=== PATIENT | female | born 1945 | race Caucasian/White ===

== ENCOUNTER 2017-10-16 11:41 | Emergency (ER) | payer MEDICARE, OTHER ==
[~2017-10-16] VITALS: Ht 157.5 cm; Wt 49.9 kg
[2017-10-16] MEDS ORDERED: SERT25TA PO (11:54)
[2017-10-16] MEDS ORDERED: ATOR10TA PO (11:54)
[2017-10-16] MEDS ORDERED: THYROID MED (11:58)
[2017-10-16] MEDS ORDERED: IV NORMAL SALINE 1000 ML BAG IV ONE ×2 (12:00→13:30)
[2017-10-16] MEDS ORDERED: ONDANSETRON 4 MG/2 ML VIAL IV ONE (12:00)
[2017-10-16] MEDS ORDERED: ONDANSETRON 4 MG/2 ML VIAL ONE (12:08)
[2017-10-16 12:29] LABS: BASOPHILS % (AUTO) 0.3 % (0.0-2.0); EOSINOPHILS % (AUTO) 0.1 % (0.0-7.0); HEMATOCRIT 36.2 % (31.2-41.9); HEMOGLOBIN 12.1 g/dL (10.9-14.3); LYMPHOCYTES # (AUTO) 0.8 K/uL (20.0-40.0); LYMPHOCYTES % (AUTO) 7.8 % (20.5-51.5); MEAN CORPUSCULAR HEMOGLOBIN 29.3 uug (24.7-32.8); MEAN CORPUSCULAR HGB CONC 34 g/dL (32.3-35.6); MEAN CORPUSCULAR VOLUME 87.6 fL (75.5-95.3); MONOCYTES # (AUTO) 0.3 K/uL (2.0-10.0); NEUTROPHILS # (AUTO) 8.7 K/uL (1.8-8.9); NEUTROPHILS % (AUTO) 88.8 % (38.5-71.5); PLATELET COUNT (AUTO) 191 K/uL (179-408); RED BLOOD CELL COUNT(AUTO) 4.13 MIL/uL (3.63-4.92); WHITE BLOOD COUNT (AUTO) 9.8 K/uL (3.8-11.8)
[2017-10-16 12:44] LABS: CARBON DIOXIDE 24 mmol/L (21-32); CHLORIDE 103 mmol/L (98-107); CREATININE 0.9 mg/dL (0.6-1.3); GLUCOSE 141 mg/dL (74-106); POTASSIUM 3.3 mmol/L (3.5-5.1); UREA NITROGEN, BLOOD 18 mg/dL (7-18)
[2017-10-16 12:49] LABS: ALANINE AMINOTRANSFERASE 24 U/L (14-59); ALKALINE PHOSPHATASE 68 U/L (50-136); ASPARTATE AMINOTRANSFERASE 19 U/L (15-37); BILIRUBIN,DIRECT 0.1 mg/dL (0.0-0.2); BILIRUBIN,TOTAL 0.4 mg/dL (0.2-1.0); LIPASE 63 U/L (73-393); TOTAL PROTEIN, SERUM 7.6 g/dL (6.4-8.2)
--- NOTE | 2017-10-16 14:48 | NUR ---
pt ambualted to bathroom with steady gait.
--- NOTE | 2017-10-16 15:00 | NUR ---
Patient discharged to home in stable conditon. Written and verbal after care instructions given. Patient verbalizes understanding of instructions.pt says feels better, pt walks in steady gait, pt accompanied by son.
[2017-10-16 15:01] VITALS: BP 121/88
== END 2017-10-16 15:02 | disposition home or self-care (01) ==
LOC: ER 11:45
DX: R10.9 Unspecified abdominal pain (principal); E78.5 Hyperlipidemia, unspecified; I10 Essential (primary) hypertension; K21.9 Gastro-esophageal reflux disease without esophagitis; E03.9 Hypothyroidism, unspecified; Z79.899 Other long term (current) drug therapy
CPT/HCPCS: 36415; 70030-TC; 71045; 83605; 83690; 85025; 85730; 87040; 93005; A4663; J2405; J7030

== ENCOUNTER 2021-02-21 17:01 | Emergency (ER) | payer MEDICARE, OTHER ==
[~2021-02-21] VITALS: Ht 157.5 cm; Wt 49.4 kg
[~2021-02-21 17:01] MED LIST: ATOR10TA PO; SERT25TA PO; THYROID MED
[2021-02-21] MEDS ORDERED: CALC500T52 PO (17:56)
[2021-02-21] MEDS ORDERED: OMEP20CA15 PO (17:56)
[2021-02-21] MEDS ORDERED: LOSA50TA39 PO (17:56)
[2021-02-21] MEDS ORDERED: ATOR20TA PO (17:56)
[2021-02-21] MEDS ORDERED: SOLI10TA2 PO (17:56)
[2021-02-21] MEDS ORDERED: ALEN70TA80 PO (17:56)
[2021-02-21] MEDS ORDERED: MV-M1TAB18 PO (17:56)
[2021-02-21] MEDS ORDERED: DIPH-1062 PO (17:56)
[2021-02-21] MEDS ORDERED: SERT100T PO (17:56)
[2021-02-21] MEDS ORDERED: ASPI81TA31 PO (17:56)
[2021-02-21] MEDS ORDERED: LEVO75TA7 PO (17:56)
[2021-02-21] MEDS ORDERED: OLOPATADINE EACHEYE (17:56)
[2021-02-21 18:03] LABS: HEMATOCRIT 31.1 % (31.2-41.9); MEAN CORPUSCULAR HEMOGLOBIN 30.1 uug (24.7-32.8); MEAN CORPUSCULAR VOLUME 90.6 fL (75.5-95.3); PLATELET COUNT (AUTO) 137 K/uL (179-408)
[2021-02-21 18:09] LABS: CREATININE 0.8 mg/dL (0.6-1.3); POTASSIUM 3.5 mmol/L (3.5-5.1)
[2021-02-21] MEDS ORDERED: ONDANSETRON ODT 4 MG TAB.RAPDIS SL ONE (19:30)
[2021-02-21] MEDS ORDERED: ONDANSETRON ODT 4 MG TAB.RAPDIS ONE (19:36)
[2021-02-21] MEDS ORDERED: IV NORMAL SALINE 1000 ML BAG IV ONE (19:45)
[2021-02-21] MEDS ORDERED: MECLIZINE HCL 25 MG TABLET PO ONE (19:45)
[2021-02-21] MEDS ORDERED: ONDANSETRON 4 MG/2 ML VIAL IV ONE (19:45)
[2021-02-21] MEDS ORDERED: ONDANSETRON 4 MG/2 ML VIAL ONE (19:48)
[2021-02-21 20:10] LABS: *BILIRUBIN,URIN NEGATIVE (NEGATIVE); *BLOOD, URINE TRACE (NEGATIVE); *COLOR,URINE YELLOW (YELLOW); *KETONES,URINE 1+ (NEGATIVE); *UROBILINOGEN,URINE 0.2 E.U./dl (NORMAL); LEUKOCYTE ESTERASE ,URINE NEGATIVE (NEGATIVE); NITRITE, URINE NEGATIVE (NEGATIVE); UGLUCOSE NEGATIVE (NEGATIVE)
[2021-02-21] MEDS ORDERED: MECLIZINE HCL 25 MG TABLET ONE (20:19)
[2021-02-21 20:21] LABS: *CLARITY,URINE SLIGHTLY HAZY (CLEAR); BACTERIA,URINE FEW /HPF (NONE SEEN); MUCUS,URINE FEW /LPF (0-FEW); SQUAMOUS EPITHELIAL CELL,UR FEW /HPF (NONE SEEN)
[2021-02-21] MEDS ORDERED: IOHEXOL 300MG/ML 100 ML INFUS..BTL ONE (20:30)
[2021-02-21] MEDS ORDERED: SWABABLE VALVE TRANSFER SET EA MC ONE (20:30)
[2021-02-21] MEDS ORDERED: IV NORMAL SALINE 250 ML IV ONE (20:30)
--- NOTE | 2021-02-21 20:45 | NUR ---
Pt taken down for CT, stable condition.
--- NOTE | 2021-02-21 21:05 | NUR ---
Pt returned from CT, stable condition.
[2021-02-21] MEDS ORDERED: MECL-159 PO (22:31)
[2021-02-21] MEDS ORDERED: ONDA8TAB13 PO (22:31)
--- NOTE | 2021-02-21 22:40 | NUR ---
Patient discharged to home in stable condition. A/O x4, no SOB or labored breathing. Denies any pain/discomfort. Denies anyn/v/d or dizziness. Written and verbal after care instructions given. Patient verbalizes understanding of instructions. Stressed follow up or return to ER for worsening s/s. Steady gait. Accompanied by family.
[2021-02-21 22:55] VITALS: BP 132/70
== END 2021-02-21 22:40 | disposition home or self-care (01) ==
LOC: ER 17:02
DX: R11.2 Nausea with vomiting, unspecified (principal); R51.9 Headache, unspecified; Z20.822 Contact with and (suspected) exposure to COVID-19; R42 Dizziness and giddiness; E78.5 Hyperlipidemia, unspecified; K21.9 Gastro-esophageal reflux disease without esophagitis; I10 Essential (primary) hypertension; E03.9 Hypothyroidism, unspecified; M19.90 Unspecified osteoarthritis, unspecified site; Z79.82 Long term (current) use of aspirin; Z79.899 Other long term (current) drug therapy; F32.9 Major depressive disorder, single episode, unspecified
CPT/HCPCS: 36415; 70450; 71045; 74177; 80048; 81001; 84484; 85025; 87426; 93005; 96361; 96374; 99285; J2405; Q9967; 70030-TC; A4663; J7030; J7050; J8597; Q0162

== ENCOUNTER 2022-05-20 21:43 | Inpatient (IN) | payer MEDICARE, OTHER ==
[~2022-05-20] VITALS: Ht 165.1 cm; Wt 60.3 kg
[~2022-05-20 21:43] MED LIST changes: +ALEN70TA80 PO; +ASPI81TA31 PO; +ATOR20TA PO; +CALC500T52 PO; +DIPH-1062 PO; +LEVO75TA7 PO; +LOSA50TA39 PO; +MECL-159 PO; +MV-M1TAB18 PO; +OLOPATADINE EACHEYE; +OMEP20CA15 PO; +ONDA8TAB13 PO; +SERT100T PO; +SOLI10TA2 PO
[2022-05-20] MEDS ORDERED: OMEP40CA21 PO (22:04)
[2022-05-20] MEDS ORDERED: DONE5TAB34 PO (22:04)
[2022-05-20] MEDS ORDERED: MEMA10TA PO (22:04)
[2022-05-20] MEDS ORDERED: CLON0.5T4 PO (22:04)
[2022-05-20] MEDS ORDERED: SERT50TA PO (22:04)
[2022-05-20] MEDS ORDERED: FERR325T30 PO (22:04)
[2022-05-20] MEDS ORDERED: OLME40TA12 PO (22:04)
[2022-05-20 22:32] LABS: HEMATOCRIT 28.7 % (31.2-41.9); MEAN CORPUSCULAR HEMOGLOBIN 30.4 uug (24.7-32.8); MEAN CORPUSCULAR VOLUME 89.6 fL (75.5-95.3); PLATELET COUNT (AUTO) 173 K/uL (179-408)
[2022-05-20 22:41] LABS: CARBON DIOXIDE 21 mmol/L (21-32); CHLORIDE 93 mmol/L (98-107); CREATININE 1.6 mg/dL (0.6-1.3); GLUCOSE 140 mg/dL (74-106); POTASSIUM 3.4 mmol/L (3.5-5.1); UREA NITROGEN, BLOOD 17 mg/dL (7-18)
[2022-05-20 22:53] LABS: ALANINE AMINOTRANSFERASE 18 U/L (14-59); ALKALINE PHOSPHATASE 57 U/L (50-136); ASPARTATE AMINOTRANSFERASE 15 U/L (15-37); BILIRUBIN,DIRECT 0.1 mg/dL (0.0-0.2); BILIRUBIN,TOTAL 0.5 mg/dL (0.2-1.0); TOTAL PROTEIN, SERUM 7.3 g/dL (6.4-8.2)
[2022-05-20] MEDS ORDERED: IV NORMAL SALINE 250 ML IV ONE (23:15)
[2022-05-20] MEDS ORDERED: PIPERACILLIN SODIUM/TAZOBACTAM 3.375 G in IV DEXTROSE 5% 50 ML IV ONE (23:15)
[2022-05-20] MEDS ORDERED: IV NS 1000 ML 1,000 ML IV ONE (23:15)
[2022-05-20] MEDS ORDERED: IV NORMAL SALINE 500 ML IV ONE (23:15)
[2022-05-20 23:55] LABS: *BILIRUBIN,URIN NEGATIVE (NEGATIVE); *BLOOD, URINE NEGATIVE (NEGATIVE); *CLARITY,URINE CLEAR (CLEAR); *COLOR,URINE YELLOW (YELLOW); *KETONES,URINE NEGATIVE (NEGATIVE); *UROBILINOGEN,URINE 0.2 E.U./dl (NORMAL); LEUKOCYTE ESTERASE ,URINE NEGATIVE (NEGATIVE); NITRITE, URINE NEGATIVE (NEGATIVE); PH,URINE 7.5 (5.0-8.0); UGLUCOSE NEGATIVE (NEGATIVE)
[2022-05-20] MEDS ORDERED: PIPERACILLIN/TAZOBACTAM/D5W 50 ML IV ONE (23:55)
[2022-05-20] MEDS ORDERED: ACETAMINOPHEN ES 500 MG TABLET ONE (23:56)
[2022-05-21] MEDS ORDERED: ACETAMINOPHEN ES 500 MG TABLET PO ONE
[2022-05-21] MEDS ORDERED: VANCOMYCIN 1G/D5W 200 ML PIGGYBACK IV ONE (00:45)
[2022-05-21] MEDS ORDERED: METRONIDAZOLE 500 MG/NS 100 ML PIGGYBACK IV ONE (00:45)
[2022-05-21] MEDS ORDERED: METRONIDAZOLE 500 MG/NS 100ML 100 ML IV ONE ×2 (01:24→04:57)
[2022-05-21] MEDS ORDERED: VANCOMYCIN IV 200 ML ONE (02:27)
[2022-05-21] MEDS ORDERED: IV NS 1000 ML 1,000 ML IV PRN (02:30)
[2022-05-21] MEDS ORDERED: ACETAMINOPHEN 325 MG TABLET PO PRN (02:30)
[2022-05-21] MEDS ORDERED: ONDANSETRON 4 MG/2 ML VIAL IV PRN (02:30)
[2022-05-21 03:35] VITALS: BP 118/57
[2022-05-21] MEDS: METRONIDAZOLE 500 MG/NS 100ML 500 MG in PREMIXED 1 EACH IV SCH ×3 (05:04→22:33)
[2022-05-21] MEDS ORDERED: PIPERACILLIN SODIUM/TAZOBACTAM 3.375 G in IV DEXTROSE 5% 50 ML IV SCH (06:00)
[2022-05-21 06:53] LABS: MEAN CORPUSCULAR HEMOGLOBIN 31.1 uug (24.7-32.8); MEAN CORPUSCULAR VOLUME 89.7 fL (75.5-95.3); PLATELET COUNT (AUTO) 139 K/uL (179-408)
[2022-05-21 07:03] LABS: ALANINE AMINOTRANSFERASE 31 U/L (14-59); ALKALINE PHOSPHATASE 47 U/L (50-136); ASPARTATE AMINOTRANSFERASE 37 U/L (15-37); BILIRUBIN,TOTAL 0.4 mg/dL (0.2-1.0); CARBON DIOXIDE 22 mmol/L (21-32); CHLORIDE 104 mmol/L (98-107); CREATININE 1.4 mg/dL (0.6-1.3); GLUCOSE 119 mg/dL (74-106); MAGNESIUM 1.7 mg/dL (1.8-2.4); PHOSPHOROUS 2.2 mg/dL (2.5-4.9); POTASSIUM 3.4 mmol/L (3.5-5.1); TOTAL PROTEIN, SERUM 6.1 g/dL (6.4-8.2); UREA NITROGEN, BLOOD 15 mg/dL (7-18)
[2022-05-21] MEDS: PANTOPRAZOLE SODIUM 40 MG VIAL IV SCH (08:10)
[2022-05-21] MEDS: CIPROFLOXACIN IV 400 MG in PREMIXED 1 EACH IV SCH ×2 (08:10→21:26)
[2022-05-21] MEDS ORDERED: MAGNESIUM SULFATE/D5W 100 ML IV SCH (08:45)
[2022-05-21] MEDS ORDERED: MAGNESIUM OXIDE 400 MG TABLET PO ONE (09:00)
[2022-05-21] MEDS ORDERED: POTASSIUM CHLORIDE 20 MEQ TAB.PRT.SR PO ONE (09:00)
[2022-05-21] MEDS ORDERED: CIPROFLOXACIN IV 200 MG in PREMIXED 1 EACH IV SCH (09:00)
[2022-05-21] MEDS ORDERED: POTASSIUM CHLORIDE 50 ML IV SCH (11:00)
[2022-05-21 11:57] VITALS: BP 121/47
[2022-05-21] MEDS ORDERED: OLOP2.5D12 OP ×2 (13:42→14:11)
[2022-05-21] MEDS: IV LACTATED RINGERS SOLUTION 1,000 ML IV PRN (15:12)
[2022-05-21 15:55] VITALS: BP 129/55
[2022-05-21] MEDS ORDERED: NEUTRA PHOS PACKET PO ONE (16:00)
[2022-05-21 20:00] VITALS: BP 122/44
[2022-05-22 04:00] VITALS: BP 118/48
[2022-05-22] MEDS: METRONIDAZOLE 500 MG/NS 100ML 500 MG in PREMIXED 1 EACH IV SCH (06:09)
[2022-05-22] MEDS: IV LACTATED RINGERS SOLUTION 1,000 ML IV PRN (06:10)
[2022-05-22 06:20] LABS: HEMATOCRIT 25.5 % (31.2-41.9); MEAN CORPUSCULAR HEMOGLOBIN 31.3 uug (24.7-32.8); MEAN CORPUSCULAR VOLUME 91.1 fL (75.5-95.3); PLATELET COUNT (AUTO) 126 K/uL (179-408)
[2022-05-22 06:33] LABS: CARBON DIOXIDE 24 mmol/L (21-32); CHLORIDE 111 mmol/L (98-107); CREATININE 1.2 mg/dL (0.6-1.3); GLUCOSE 102 mg/dL (74-106); UREA NITROGEN, BLOOD 16 mg/dL (7-18)
[2022-05-22 06:48] LABS: MAGNESIUM 1.9 mg/dL (1.8-2.4); PHOSPHOROUS 3.4 mg/dL (2.5-4.9)
[2022-05-22] MEDS: CIPROFLOXACIN IV 400 MG in PREMIXED 1 EACH IV SCH (08:00)
[2022-05-22] MEDS: PANTOPRAZOLE SODIUM 40 MG VIAL IV SCH (08:00)
[2022-05-22] MEDS ORDERED: VANCOMYCIN IV 1,000 MG in IV DEXTROSE 5% 250 ML IV SCH (08:00)
[2022-05-22] MEDS ORDERED: METR500T PO (11:27)
[2022-05-22] MEDS ORDERED: LACT1CAP72 PO (11:27)
[2022-05-22] MEDS ORDERED: CIPR-262 PO (11:27)
[2022-05-22 11:54] VITALS: BP 129/48
[2022-05-23 09:38] LABS: *CREATININE,URINE 75.8 mg/dL (30-125)
== END 2022-05-22 12:35 | disposition home or self-care (01) | DRG 871 ==
LOC: ER 21:52 → TELE3 23:30 → MEDSURG3 05-21 18:59
PROVIDERS: ADMIT Nurse Practitioner Acute Care; ATTEND Nurse Practitioner Acute Care
DX: A41.9 Sepsis, unspecified organism (principal); G93.41 Metabolic encephalopathy; N17.0 Acute kidney failure with tubular necrosis; E87.1 Hypo-osmolality and hyponatremia; N39.0 Urinary tract infection, site not specified; E87.20 Acidosis, unspecified; E83.39 Other disorders of phosphorus metabolism; E83.42 Hypomagnesemia; K62.89 Other specified diseases of anus and rectum; E83.51 Hypocalcemia; E86.0 Dehydration; E86.1 Hypovolemia; E87.6 Hypokalemia; Z79.82 Long term (current) use of aspirin; Z86.16 Personal history of COVID-19; I10 Essential (primary) hypertension; F03.90 Unspecified dementia, unspecified severity, without behavioral disturbance, psychotic disturbance, mood disturbance, and anxiety; E78.5 Hyperlipidemia, unspecified; E03.9 Hypothyroidism, unspecified; Z20.822 Contact with and (suspected) exposure to COVID-19; R53.1 Weakness
CPT/HCPCS: 36415; 70450; 71045; 83605; 83735; 84100; 84300; 84443; 84484; 85025; 87040; 87086; 87400; 93005; A4663; A9150; C1758; C9113; G0378; J0744; J2543; J3370; J3490; J7040; J7050; J7120

== ENCOUNTER 2025-03-19 19:21 | Emergency (ER) | payer MEDICARE, OTHER ==
[~2025-03-19] VITALS: Ht 162.6 cm; Wt 68.0 kg
[~2025-03-19 19:21] MED LIST changes: -ALEN70TA80 PO; +AMOX-430 PO; -ATOR10TA PO; +BACL20TA PO; -CALC500T52 PO; +CLON0.5T4 PO; +DONE5TAB34 PO; -LEVO75TA7 PO; +LEVO88TA2 PO; -LOSA50TA39 PO; -MECL-159 PO; +MEMA10TA PO; +NAPR-1009 PO; +OLME40TA12 PO; -OLOPATADINE EACHEYE; -OMEP20CA15 PO; +OMEP40CA21 PO; +ONDA4TAB5 PO; -ONDA8TAB13 PO; -SERT100T PO; -SERT25TA PO; +SERT50TA PO; -THYROID MED; +TRAZ-182 PO
[2025-03-19 19:28] VITALS: BP 97/57
[2025-03-19 20:11] VITALS: BP 110/60; TEMP 98; O2SAT 98
== END 2025-03-19 20:12 | disposition home or self-care (01) ==
LOC: ER 19:28
DX: S01.511A Laceration without foreign body of lip, initial encounter (principal); E78.00 Pure hypercholesterolemia, unspecified; F03.90 Unspecified dementia, unspecified severity, without behavioral disturbance, psychotic disturbance, mood disturbance, and anxiety; Z79.82 Long term (current) use of aspirin; Z86.16 Personal history of COVID-19; Z88.7 Allergy status to serum and vaccine; Z79.899 Other long term (current) drug therapy; W01.0XXA Fall on same level from slipping, tripping and stumbling without subsequent striking against object, initial encounter; Y93.89 Activity, other specified; Y92.89 Other specified places as the place of occurrence of the external cause; Y99.8 Other external cause status
CPT/HCPCS: A4606; A4663

== ENCOUNTER 2025-07-09 08:08 | Emergency (ER) | payer MEDICARE, OTHER ==
[~2025-07-09] VITALS: Ht 157.5 cm; Wt 61.2 kg
[~2025-07-09 08:08] MED LIST changes: +AMOX-319 PO; -AMOX-430 PO; -NAPR-1009 PO; +NAPR-1194 PO
[2025-07-09 08:09] VITALS: BP 131/72
[2025-07-09] MEDS ORDERED: LIDO700A30 TP (08:30)
[2025-07-09] MEDS ORDERED: IBUP-1953 PO (08:30)
[2025-07-09] MEDS ORDERED: ACYC-108 PO (08:30)
[2025-07-09 08:39] VITALS: BP 131/72; TEMP 98; O2SAT 99
== END 2025-07-09 08:40 | disposition home or self-care (01) ==
LOC: ER 08:08
DX: B02.9 Zoster without complications (principal); E03.9 Hypothyroidism, unspecified; E78.00 Pure hypercholesterolemia, unspecified; F03.93 Unspecified dementia, unspecified severity, with mood disturbance; F32.A Depression, unspecified; L20.9 Atopic dermatitis, unspecified; L25.9 Unspecified contact dermatitis, unspecified cause; Z79.82 Long term (current) use of aspirin; Z79.890 Hormone replacement therapy; Z79.899 Other long term (current) drug therapy; Z86.16 Personal history of COVID-19; Z88.7 Allergy status to serum and vaccine
CPT/HCPCS: A4606; A4663